=== PATIENT | male | born 1960 | race Caucasian/White ===

== ENCOUNTER 2017-09-06 10:41 | Day surgery (SDC) | payer BC ==
[~2017-09-06] VITALS: Ht 177.8 cm; Wt 79.4 kg
[~2017-09-06 10:41] MED LIST: ALBENZA200 MG PO; B COMPLE2 PO; BC FAST PAI1 PO; FISH OIL1 CAP PO; NIACIN50 MG PO; SAW PALMETTO1 CAP PO; TAMSULOSIN0.4 MG PO
[2017-09-06 13:52] VITALS: BP 137/93
== END 2017-09-06 13:45 | disposition home or self-care (01) | DRG 392 ==
LOC: ENDO 10:41 → ORM 14:15
PROVIDERS: ATTEND Internal Medicine Gastroenterology
PROC: 0DB98ZX Excision of Duodenum, Via Natural or Artificial Opening Endoscopic, Diagnostic (ICD-10-PCS; principal; 2017-09-06)
PROC: 0DB48ZX Excision of Esophagogastric Junction, Via Natural or Artificial Opening Endoscopic, Diagnostic (ICD-10-PCS; 2017-09-06)
DX: R10.13 Epigastric pain (principal); K29.70 Gastritis, unspecified, without bleeding; K44.9 Diaphragmatic hernia without obstruction or gangrene; K52.832 Lymphocytic colitis; R14.0 Abdominal distension (gaseous); R19.7 Diarrhea, unspecified; Z86.010 Personal history of colon polyps